=== PATIENT | male | born 1950 | race Caucasian/White ===

== ENCOUNTER 2020-04-09 08:49 | Inpatient (IN) ==
[~2020-04-09 08:49] MED LIST: Buffered Lidocaine 1% SYRIN 1 ml INTRADERM ONE; Lactated Ringers 1000 ml BAG 1,000 ML IV SCH
[2020-04-09] MEDS ORDERED: Clindamycin 900 MG/D5W BAG 900 MG/50 ML BAG IVPB ONE (09:03)
[2020-04-09] MEDS ORDERED: Buffered Lidocaine 1% SYRIN 1 ml INTRADERM ONE (09:03)
[2020-04-09] MEDS ORDERED: Midazolam 5 mg/5 ml VIAL 1 mg/ml 5 ml VIAL (5 mg) ONE (09:28)
[2020-04-09] MEDS ORDERED: Lidocaine 2% PF 5 ML VIAL ONE ×3 (09:29→11:41)
[2020-04-09] MEDS ORDERED: ROPIVACAINE 5 MG/ML 30 ML BTL (0.5%) ONE ×3 (10:34→11:32)
[2020-04-09] MEDS ORDERED: Propofol 10 mg/ml 100 ML BTL 100 ML ONE (10:47)
[2020-04-09] MEDS ORDERED: Succinylcholine 200 mg VIAL 20 mg/ml 10 ml VIAL (200 mg) ONE (10:47)
[2020-04-09] MEDS ORDERED: Bupivacaine 0.5% SDV PF 30ML VIAL ONE (10:50)
[2020-04-09] MEDS ORDERED: Ondansetron 4 mg VIAL 2 MG/ML 2 ml VIAL ONE (11:45)
[2020-04-09] MEDS ORDERED: Dexamethasone IV 4 MG/ML VIAL 1 ml VIAL ONE (11:45)
[2020-04-09] MEDS ORDERED: Naloxone 0.4 mg VIAL 0.4 mg/ml 1 ml VIAL IV PRN (11:57)
[2020-04-09] MEDS ORDERED: HYDROmorphone 1 MG/1 ML SYRINGE IV PRN (11:57)
[2020-04-09] MEDS ORDERED: fentaNYL 100 mcg/2 ml 50 MCG/ML VIAL IV PRN (11:57)
[2020-04-09] MEDS ORDERED: Ondansetron 4 mg VIAL 2 MG/ML 2 ml VIAL IV PRN ×2 (11:57→14:07)
[2020-04-09] MEDS ORDERED: EPHEDrine (Pressors) 50 MG/ML VIAL ONE (12:41)
[2020-04-09] MEDS ORDERED: Sterile Water for Inj 10 ML ONE (12:41)
[2020-04-09] MEDS ORDERED: oxyCODONE/Acetamin 5/325 mg TAB PO PRN (14:07)
[2020-04-09] MEDS ORDERED: Magnesium Hydroxide LIQ 30 ML UDC PO PRN (14:07)
[2020-04-09] MEDS ORDERED: Lactulose 30 ml UDC PO PRN (14:07)
[2020-04-09] MEDS ORDERED: diPHENhydraMINE IV 50 MG/ML 1 ml VIAL (BENADRYL) IV PRN (14:07)
[2020-04-09] MEDS ORDERED: diPHENhydraMINE 25 mg TAB PO PRN (14:07)
[2020-04-09] MEDS ORDERED: Morphine 2 MG/ML SYRINGE IV PRN (14:07)
[2020-04-09] MEDS ORDERED: Ondansetron ODT 4 mg TAB 4 MG TAB PO PRN (14:07)
[2020-04-09] MEDS ORDERED: Polyethylene Glycol 3350 17 GM PACKET PO PRN (14:13)
[2020-04-09] MEDS ORDERED: oxyCODONE/Acetamin 5/325 mg TAB ONE (14:35)
[2020-04-09] MEDS: oxyCODONE/Acetamin 5/325 mg TAB PO PRN (14:37)
[2020-04-09] MEDS ORDERED: Lactated Ringers 1000 ml BAG 1,000 ML IV SCH (15:00)
[2020-04-09] MEDS ORDERED: Dextrose 50% Syringe 50 ml 25 GM/50 ML SYRINGE IV PUSH PRN (15:56)
[2020-04-09] MEDS ORDERED: CMCS:Simvastatin 20 mg TAB (NF) PO SCH (18:00)
[2020-04-09] MEDS: Clindamycin 600 MG/D5W BAG 600 MG/50 ML BAG IV SCH (20:56)
[2020-04-09] MEDS: Magnesium Hydroxide LIQ 30 ML UDC PO SCH (21:15)
[2020-04-10] MEDS: Clindamycin 600 MG/D5W BAG 600 MG/50 ML BAG IV SCH ×2 (04:01→12:52)
[2020-04-10 06:24] LABS: Hematocrit 35 % (42-52); Hemoglobin 12.1 g/dL (14.0-18.0); Mean Platelet Volume 9.2 fL (7.4-10.4); Platelet Count 219 10^3/uL (150-450)
[2020-04-10 06:48] LABS: BUN/Creatinine Ratio 17.3 (8-20); Calcium 8.5 mg/dL (8.6-10.3); EGFR African American 67.6 (>60); EGFR Non-African American 55.9 (>60); Potassium 4.1 mmol/L (3.5-5.0)
[2020-04-10] MEDS: Magnesium Hydroxide LIQ 30 ML UDC PO SCH (08:26)
[2020-04-10] MEDS: oxyCODONE/Acetamin 5/325 mg TAB PO PRN ×2 (08:29→12:46)
[2020-04-10] MEDS ORDERED: Vitamin THERAPEUTIC TAB PO SCH (09:00)
[2020-04-10 11:57] VITALS: BP 117/67
[2020-04-10] MEDS ORDERED: Insulin GLARGINE 100 un/ml 10 ml VIAL SUBCUT SCH (14:00)
== END 2020-04-10 15:00 | disposition home health service (06) | DRG 470 ==
LOC: INTOOBSV 08:49 → AA 08:49 → SSU 14:07
PROVIDERS: ADMIT Orthopaedic Surgery Adult Reconstructive Orthopaedic Surgery; ATTEND Orthopaedic Surgery Adult Reconstructive Orthopaedic Surgery